=== PATIENT | male | born 1985 | race Hispanic/Latino ===

== ENCOUNTER → 2018-01-17 | Day surgery (SDC) | payer OTHER ==
[~2018-01-17] MED LIST: FENTANYL CITRATE/PF 100MCG/2 ML INJ ONE; HYOSCYAMINE SULFATE 0.5 MG/ML INJ ONE; MIDAZOLAM HCL 2 MG/2 ML VIAL ONE; PROPOFOL IV EMULSION 10 MG/ML 50 ML VIAL ONE
[2018-01-17 14:35] VITALS: BP 118/82
--- NOTE | 2018-01-17 16:43 | Operative Report ---
DATE OF PROCEDURE: January 17, 2018 REFERRING PHYSICIAN: ORION HERNANDEZ MD PROCEDURE PERFORMED: Colonoscopy and polypectomy with biopsies. INDICATIONS FOR COLONOSCOPY: Surveillance colonoscopy, personal history of colon polyps. MEDICATION: Patient was done under MAC. Please see anesthesiologist's note. PROCEDURE: With the patient in the left lateral decubitus position, flexible fiberoptic Olympus colonoscope was inserted into the rectum with ease and advanced all way to the cecum. The scope was then withdrawn slowly. Mucosa overlying the cecum and ascending colon appeared to be within normal limits. There was a prominent fold noted in the approximately mid transverse colon that was biopsied. An approximately 1 cm sessile polyp distal transverse colon was removed per snare electrocautery. An additional polyp was also removed per snare electrocautery from the descending colon. Diverticular disease was noted to involve the descending and the sigmoid colon. Five polyps were hot biopsied from the sigmoid colon. Six polyps were hot biopsied from the rectum. The scope was then retroflexed into the distal rectum and small internal hemorrhoids were noted, none of which was actively bleeding. The scope was then straightened out. It was subsequently withdrawn. Patient tolerated procedure well. IMPRESSION: 1. Prominent fold transverse colon, biopsied. 2. Approximately 1 cm polyp sessile distal transverse colon, snared. 3. Descending colon polyp approximately 6 mm removed per snare electrocautery. 4. Sigmoid colon polyps times 5, hot biopsied. 5. Diverticulosis. 6. Rectal polyps times 6, hot biopsied. 7. Internal hemorrhoids, none actively bleeding. PLAN: Follow up histology. The patient will need a small bowel series to check for polyps in the small bowel and possibly an EGD. The patient will need a followup colonoscopy in one year. A total of 15 polyps were removed. Job#: [id number] GH cc:ORION HERNANDEZ MD
== END | disposition home or self-care (01) ==
LOC: OR 10:39
PROVIDERS: ATTEND Internal Medicine Gastroenterology
DX: Z12.11 Encounter for screening for malignant neoplasm of colon (principal); D12.4 Benign neoplasm of descending colon; K62.1 Rectal polyp; K63.89 Other specified diseases of intestine; K57.30 Diverticulosis of large intestine without perforation or abscess without bleeding; K64.8 Other hemorrhoids; M54.9 Dorsalgia, unspecified; R06.83 Snoring
CPT/HCPCS: 45380; 45384; 45385; J1980; J2250; 45378

== ENCOUNTER 2018-01-18 16:52 | Observation (INO) | payer OTHER ==
[~2018-01-18] VITALS: Ht 167.6 cm; Wt 93.9 kg
[2018-01-18] MEDS ORDERED: PANTOPRAZOLE 40 MG 10ML VIAL IV STA (17:52)
[2018-01-18] MEDS ORDERED: SODIUM CHLORIDE 0.9% 1000ML 1,000 ML IV STA (17:52)
[2018-01-18 18:46] LABS: BASOPHILS % 0.4 % (0.0-1.0); EOSINOPHILS # (AUTO) 0.3 (0.0-0.4); EOSINOPHILS % 2.3 % (0.0-6.0); HEMATOCRIT 43.6 % (38.2-49.6); HEMOGLOBIN 15.2 g/dL (14.0-18.0); LYMPHOCYTES # (AUTO) 1.6 (1.0-3.2); LYMPHOCYTES % 14.9 % (18.0-39.1); MEAN CORPUSCULAR HEMOGLOBIN 32.2 pg (28-32); MEAN CORPUSCULAR HGB CONC 34.9 g/dL (31-35); MEAN CORPUSCULAR VOLUME 92.4 fL (81-99); MONOCYTES % 9.6 % (4.4-11.3); NEUTROPHILS # (AUTO) 7.8 (2.1-6.9); NEUTROPHILS % 72.4 % (38.7-80.0); PLATELET COUNT 151 x10e3/uL (140-360); RED BLOOD COUNT 4.72 x10e6/uL (4.3-5.7); RED CELL DISTRIBUTION WIDTH 12.2 % (11.7-14.4)
[2018-01-18 18:58] LABS: INR 0.9
[2018-01-18 18:59] LABS: PARTIAL THROMBOPLASTIN TIME 29.1 seconds (23.8-35.5)
[2018-01-18 19:08] LABS: ALANINE AMINOTRANSFERASE 40 IU/L (0-55); ALBUMIN 4.2 g/dL (3.5-5.0); ALBUMIN/GLOBULIN RATIO 1.3 (0.8-2.0); ALKALINE PHOSPHATASE 79 IU/L (40-150); BLOOD UREA NITROGEN 18 mg/dL (7-26); BUN/CREATININE RATIO 19 (6-25); CALCIUM 8.2 mg/dL (8.4-10.2); CARBON DIOXIDE 19 mmol/L (22-29); CHLORIDE 108 mmol/L (98-107); CREATININE, SERUM 0.93 mg/dL (0.72-1.25); EST GLOMERULAR FILTRATION RATE > 60 ML/MIN (60-); GLUCOSE 88 mg/dL (74-118); MAGNESIUM 2.8 MG/DL (1.3-2.1); SODIUM 139 mmol/L (136-145)
[2018-01-18 20:29] VITALS: BP 124/64
[2018-01-18 20:33] VITALS: BP 124/64
[2018-01-18] MEDS: SODIUM CHLORIDE 0.9% 1000ML 1,000 ML IV SCH (22:07)
[2018-01-19 00:30] VITALS: BP 115/59
[2018-01-19 00:48] LABS: HEMATOCRIT 37.6 % (38.2-49.6); HEMOGLOBIN 13.1 g/dL (14.0-18.0)
[2018-01-19 04:59] LABS: HEMATOCRIT 35.7 % (38.2-49.6); HEMOGLOBIN 12.5 g/dL (14.0-18.0)
[2018-01-19] MEDS: SODIUM CHLORIDE 0.9% 1000ML 1,000 ML IV SCH ×3 (07:17→19:02)
[2018-01-19 08:00] VITALS: BP 112/62
[2018-01-19] MEDS: PANTOPRAZOLE 40 MG 10ML VIAL IV SCH (09:08)
[2018-01-19 11:31] LABS: HEMATOCRIT 38.9 % (38.2-49.6); HEMOGLOBIN 13.5 g/dL (14.0-18.0)
[2018-01-19 12:00] VITALS: BP 113/68
--- NOTE | 2018-01-19 14:19 | History and Physical ---
HISTORY OF PRESENT ILLNESS: A 32-year-old male with past medical history positive for rectal bleeding in the past. He has had a colonoscopy recently with no evidence of any active bleeding. He was readmitted to hospital because of rectal bleeding. Dr. Boubacar Vail, gastroenterology has been consulted on the case. REVIEW OF SYSTEMS CARDIOVASCULAR: No chest pain or palpitation. RESPIRATORY: No shortness of breath and no cough. GASTROINTESTINAL: He has no nausea, no vomiting, no abdominal pain. No black stools. He has had only 1 episode of bright red blood per stools and that is it, it never happened again. GENITOURINARY: No frequency, no dysuria at this point in time. Had it before, but not now. PHYSICAL EXAMINATION VITAL SIGNS: Blood pressure 112/62, temperature 97.8, heart rate 71 per minute, respiratory rate 14 per minute. Oxygen saturation 97%. HEART: Shows regular rhythm. Normal S1, S2 sounds. LUNGS: Clear bilaterally. ABDOMEN: Soft, nontender, no distention. No visceromegaly. EXTREMITIES: Show no evidence of cyanosis, edema or trauma. On the BMP, sodium 139, potassium 4.0, chloride 108, CO2 19, BUN 18, creatinine 0.83, glucose 88. On the CBC, white blood count 10.7, hemoglobin 12.5, hematocrit 35.7, platelet count 151,000. PT 13.0, INR 0.90, PTT 29.1. AST 31, ALT 40, total bilirubin 0.7, alkaline phosphatase 79. FINAL IMPRESSION: Rectal bleeding. PLAN OF TREATMENT: We are going to consult Dr. Boubacar Vail for gastroenterology. He is on Protonix 40 mg daily. We are going to discontinue the normal saline. Job#: [id number] REENA
[2018-01-19 16:05] VITALS: BP 118/61
[2018-01-19 19:49] VITALS: BP 113/68
[2018-01-19 20:23] VITALS: BP 113/68
[2018-01-20] VITALS: BP 114/62
[2018-01-20] MEDS ORDERED: HYDROCORTISONE ACETATE 25 MG/SUPP.RECT SUPP RC SCH ×2 (01:45→09:00)
[2018-01-20 04:00] VITALS: BP 117/67
[2018-01-20 05:03] LABS: HEMATOCRIT 36.3 % (38.2-49.6); HEMOGLOBIN 12.8 g/dL (14.0-18.0)
[2018-01-20] MEDS: SODIUM CHLORIDE 0.9% 1000ML 1,000 ML IV SCH ×2 (05:59→10:58)
[2018-01-20 08:14] VITALS: BP 110/64
[2018-01-20 09:25] VITALS: BP 110/64
[2018-01-20] MEDS: PANTOPRAZOLE 40 MG 10ML VIAL IV SCH (09:32)
[2018-01-20 11:37] VITALS: BP 121/68
--- NOTE | 2018-01-20 15:47 | Discharge Summary ---
Mr. Quan is a 32-year-old man with history of recent colonoscopy a few days ago with several polyps removed. He came back to the emergency room complaining of bleeding and burning in the anal area. The patient was seen by GI, Dr. Vail. At the present time, the patient denies any symptoms. He states he went to the restroom, and he did not have any bleeding. On physical examination, he is awake and alert. Temperature is 99.7, blood pressure 110/64. The heart has regular rate. The lungs are clear to auscultation. Abdomen is soft. On the blood work, potassium 4.0, creatinine 0.93, glucose 88. Coagulation was normal. Hemoglobin 12.8 and hematocrit 36.3 today. ASSESSMENT: Rectal bleeding, apparently already resolved. The patient had a recent colonoscopy with colon polyps removal. PLAN: Hemoglobin seems to be stable. The patient denies any recurrent bleeding. The plan is to discharge him home if it is okay with GI. Continue Protonix 40 mg daily. All of this was discussed with the patient, and all questions were answered to satisfaction. AIDA SCHAFFER MD Job#: [id number]
== END 2018-01-20 13:30 | disposition home or self-care (01) ==
LOC: ER 16:52 → ERHOLD 19:06 → IMCU 21:12
PROVIDERS: ADMIT Internal Medicine; ATTEND Internal Medicine
DX: K62.5 Hemorrhage of anus and rectum (principal); Z86.010 Personal history of colon polyps; Z87.19 Personal history of other diseases of the digestive system
CPT/HCPCS: 36415 ×3; 80053; 83735; 85014 ×2; 85018 ×2; 85025; 85610; 85730; 86850; 86900; 99283; G0378 ×3; J7030 ×3

== ENCOUNTER → 2018-02-05 | Outpatient (CLI) | payer OTHER ==
[2018-02-05 07:53] LABS: BASOPHILS # (AUTO) 0.1 (0.0-0.1); BASOPHILS % 0.7 % (0.0-1.0); EOSINOPHILS # (AUTO) 0.3 (0.0-0.4); EOSINOPHILS % 4.8 % (0.0-6.0); LYMPHOCYTES # (AUTO) 1.9 (1.0-3.2); LYMPHOCYTES % 27.4 % (18.0-39.1); MEAN CORPUSCULAR VOLUME 91.5 fL (81-99); MONOCYTES # (AUTO) 0.7 (0.2-0.8); MONOCYTES % 9.7 % (4.4-11.3); PLATELET COUNT 236 x10e3/uL (140-360); RED BLOOD COUNT 4.37 x10e6/uL (4.3-5.7); RED CELL DISTRIBUTION WIDTH 12.5 % (11.7-14.4)
--- NOTE | 2018-02-05 11:17 | Diagnostic Imaging Report ---
PROCEDURE: SMALL BOWEL SERIES COMPARISON: None. INDICATIONS: MELENA TECHNIQUE: The patient was given oral contrast to drink and multiple sequential images of the abdomen were obtained through 2 hours and 10 minutes until contrast was noted to reach the ascending colon. Multiple spot images of the small bowel and terminal ileum were obtained. FINDINGS: There is normal small bowel motility and mobility. Small bowel caliber and folds are within normal limits. There is no evidence of intraluminal mass or extrinsic compression. The terminal ileum is normal in appearance. Fluoroscopy time: 0.8 minutes Total dose: 57.07 mGy CONCLUSION: Normal small bowel series. Zana Ramos D.O. Dictated by: Zana Ramos D.O. on 02/05/2018 at 11:27 Electronically approved by: Zana Ramos D.O. on 02/05/2018 at 11:27
== END ==
LOC: DX 07:26
PROVIDERS: ATTEND Internal Medicine Gastroenterology
DX: K92.1 Melena (principal)
CPT/HCPCS: 36415; 74250; 85025

== ENCOUNTER → 2022-03-30 | Day surgery (SDC) | payer OTHER ==
[~2022-03-30] MED LIST changes: +GLUCAGON FOR INJ 1 MG VIAL ONE; -HYOSCYAMINE SULFATE 0.5 MG/ML INJ ONE; +LIDOCAINE HCL 2% LOCAL INJ 5 ML SDV VIAL INJ ONE; +METOCLOPRAMIDE HCL 10 MG/2ML VIAL ONE; +PROPOFOL IV EMULSION 10 MG/ML 20 ML VIAL ONE; +PROPOFOL IV EMULSION 10 MG/ML 50 ML VIAL IV ONE; -PROPOFOL IV EMULSION 10 MG/ML 50 ML VIAL ONE
[2022-03-30 10:45] VITALS: BP 102/62
== END | disposition home or self-care (01) ==
LOC: OR 07:41
PROVIDERS: ATTEND Internal Medicine Gastroenterology
DX: Z09 Encounter for follow-up examination after completed treatment for conditions other than malignant neoplasm (principal); K63.5 Polyp of colon; K62.1 Rectal polyp; K63.89 Other specified diseases of intestine; K57.30 Diverticulosis of large intestine without perforation or abscess without bleeding; K64.8 Other hemorrhoids; Z71.3 Dietary counseling and surveillance; Z68.39 Body mass index [BMI] 39.0-39.9, adult
CPT/HCPCS: 45380; J1610; J2001; J2250; J2704 ×2; J2765; J3010; 45378; 45385